=== PATIENT | female | born 1945 | race Caucasian/White ===

== ENCOUNTER → 2016-04-05 | Outpatient (CLI) | payer MEDICARE, BC ==
[~2016-04-05] MED LIST: ELMI100C; ESTR.3; HYDR-2768; OXYB5TAB33; OYST500T77; SYNT112T; TAB-TAB; [UNRECOGNIZED DRUG - REMARK]
--- NOTE | 2016-04-27 09:11 | RSPPFT ---
DATE OF PROCEDURE: 04/05/16 COMMENTS: Spirometry demonstrates an FEV1 of 2.0 at 85% of predicted, FVC of 3.0 at 93%, FEV1/FVC ratio is 65% of predicted. The FEF 25-75 is 40% of predicted. Post-bronchodilator study demonstrated mild improvements in the FEF 25-75. Lung volumes demonstrated a raised RV/TLC ratio suggesting hyperinflation and air trapping. Diffusion capacity is normal. Flow volume loops appear unremarkable. IMPRESSION: 1. Mild obstructive disease with small airways obstruction. 2. Significant response to use of bronchodilator indicating reversibility. 3. Normal diffusion capacity.
== END ==
LOC: HRSP 10:10
PROVIDERS: ATTEND Family Medicine
DX: J44.9 Chronic obstructive pulmonary disease, unspecified (principal); Z00.00 Encounter for general adult medical examination without abnormal findings
CPT/HCPCS: 94060; 94726; 94729

== ENCOUNTER → 2017-06-13 | Outpatient (CLI) | payer MEDICARE, BC ==
--- NOTE | 2017-06-15 14:10 | RSPPFT ---
DATE OF PROCEDURE: 06/13/17 COMMENTS: Spirometry with FVC of 2.8, FEV1 of 1.8, FEV1/FVC ratio at 65%. A positive but non-significant response to acutely inhaled bronchodilator noted. Slow vital capacity is 79%. TLC is 87% Diffusion capacity is 56% and normal when corrected for alveolar volume. IMPRESSION: 1. Moderately severe obstructive disease. 2. Non-significant response to acutely inhaled bronchodilator. 3. No evidence of airways restriction.
== END ==
LOC: HRSP 13:02
PROVIDERS: ATTEND Family Medicine
DX: J44.9 Chronic obstructive pulmonary disease, unspecified (principal)
CPT/HCPCS: 94060; 94726; 94729